=== PATIENT | male | born 1945 | race Caucasian/White ===

== ENCOUNTER 2016-11-04 10:33 | Emergency (ER) | payer OTHER, BC ==
[~2016-11-04] VITALS: Ht 185.4 cm; Wt 124.7 kg
--- NOTE | ~2016-11-04 | EKG ---
[place] [id number] [facility] [employer] [place] [address] ELECTROCARDIOGRAM REPORT Name: JESENIA LENTZ [facility] [id number] Admission: 11/04/16 Attend Phys: Discharge: 11/04/16 Date of : 49 Report #: [id number] THIS REPORT FOR: //name// [facility] ED Test Date: 2016-11-04 Test Time: 11:17:24 Pat Name: JESENIA LENTZ Department: Room: Gender: [employer]: MZOOK : 1945 Requested By: Augustin Kenney Order Number: [id number] MD: Malcolm Nguyen Measurements Intervals [place] Rate: 68 P: 29 [place]: 157 QRS: -9 QRSD: 88 T: 30 QT: 410 QTc: 437 Interpretive Statements Sinus rhythm Low voltage, precordial leads No previous ECG available for comparison Electronically Signed On 11-05-2016 7:15:31 CDT by Malcolm Nguyen [email or web address] <ELECTRONICALLY SIGNED> By: Malcolm Nguyen MD, [facility] 11/05/16 0715 1117 [id number] Malcolm Nguyen MD, FACC /EPI
[2016-11-04 11:02] LABS: ABSOLUTE NEUTROPHILS 2.5 thou/uL (1.4-8.2); BASOPHILS 0.4 % (0.0-2.0); EOSINOPHILS 7.2 % (0.0-3.0); HEMATOCRIT 40.2 % (42.0-52.0); HEMOGLOBIN 13.5 gm/dL (14.0-18.0); LYMPHOCYTES 24.2 % (24.0-44.0); MCH 31.2 pg (26.0-34.0); MCHC 33.6 g/dL (28.0-37.0); MCV 92.7 fL (80.0-100.0); MONOCYTES 8.2 % (1.0-8.0); PLATELET COUNT 101 thou/uL (150-400); RBC 4.34 mil/uL (4.50-6.00); RDW 13.8 % (10.5-14.5); WBC 4.2 thou/uL (4.0-11.0)
[2016-11-04 11:03] LABS: MANUAL DIFF NO
[2016-11-04 11:10] LABS: CREATININE 1.6 mg/dL (0.7-1.3)
[2016-11-04 11:14] LABS: ALBUMIN 3.2 g/dL (3.4-5.0); TOTAL BILIRUBIN 1.1 mg/dL (<0.1-1.0); TOTAL PROTEIN 6.3 g/dL (6.4-8.2)
[2016-11-04] MEDS ORDERED: PROGRAF1 MG PO (11:42)
[2016-11-04] MEDS ORDERED: NEURONTIN 300300 M1 PO (11:43)
[2016-11-04] MEDS ORDERED: TRAMADOL 50 MG50 MG PO (11:43)
[2016-11-04] MEDS ORDERED: OMEPRAZOLE 20 M20 M1 PO (11:43)
[2016-11-04] MEDS ORDERED: PREDNISONE 5 MG5 M1 PO (11:44)
[2016-11-04] MEDS ORDERED: LIPITOR 20 MG T20 M1 PO (11:44)
[2016-11-04] MEDS ORDERED: PROLIA60 MG/1 ML SQ (11:44)
[2016-11-04] MEDS ORDERED: ANTACID650 MG PO (11:45)
[2016-11-04] MEDS ORDERED: REQUIP 1 MG TABL1 M1 PO (11:46)
[2016-11-04] MEDS ORDERED: ALLOPURINOL 10100 M1 PO (11:46)
[2016-11-04] MEDS ORDERED: PROPRANOLOL 1010 MG PO (11:47)
[2016-11-04] MEDS ORDERED: ACCUNEB SO1.25 MG/1 INH (11:47)
[2016-11-04] MEDS ORDERED: NOVOLOG100 UNIT/1 SUBQ (11:47)
[2016-11-04] MEDS ORDERED: LEVEMIR SUBQ (11:47)
[2016-11-04] MEDS ORDERED: LIORESAL 10 MG10 MG PO (11:47)
[2016-11-04] MEDS ORDERED: LASIX 20 MG TAB20 MG PO (11:48)
[2016-11-04] MEDS ORDERED: SYMBICORT160 MCG/4. INH (11:48)
[2016-11-04] MEDS ORDERED: SPIRIVA INH (11:48)
[2016-11-04] MEDS ORDERED: ASPIR 8181 MG PO (11:49)
[2016-11-04] MEDS ORDERED: AEROECLIPSE II1 EACH MC (11:49)
[2016-11-04 12:20] VITALS: BP 119/51
[2016-11-04] MEDS ORDERED: ZOFRAN ODT4 MG PO (12:27)
== END 2016-11-04 14:11 | disposition home or self-care (01) ==
LOC: ER 10:33
PROVIDERS: Emergency Medicine
DX: R11.2 Nausea with vomiting, unspecified (principal); R53.1 Weakness; K74.60 Unspecified cirrhosis of liver; J44.9 Chronic obstructive pulmonary disease, unspecified; I10 Essential (primary) hypertension; E11.9 Type 2 diabetes mellitus without complications; Z94.4 Liver transplant status; Z94.0 Kidney transplant status; Z79.4 Long term (current) use of insulin; Z91.048 Other nonmedicinal substance allergy status; Z88.1 Allergy status to other antibiotic agents